=== PATIENT | female | born 1975 | race Caucasian/White ===

== ENCOUNTER 2019-03-01 01:40 | Emergency (ER) | payer MEDICAID ==
[~2019-03-01] VITALS: Ht 167.6 cm; Wt 84.8 kg
[2019-03-01 02:39] LABS: Urine Bacteria FEW /hpf (None Seen); Urine Blood Negative /uL (Negative); Urine Mucus FEW (None Seen); Urine Specific Gravity 1.026 (1.001-1.035); Urine WBC 3 /hpf (0 - 5)
[2019-03-01 03:00] LABS: Basophils # (auto) 0.1 uL; Basophils % (auto) 0.6 % (0.0-2.0); Eosinophils # (auto) 0.1 uL; Eosinophils % (auto) 1.1 % (0.0-7.0); Hematocrit 39.1 % (36.0-46.0); Hemoglobin 13.4 g/dL (12.2-16.2); Lymphocytes # (auto) 0.8 uL; Lymphocytes % (auto) 6.5 % (10.0-50.0); Mean Corpuscular Hemoglobin 30.8 pg (28.0-32.0); Mean Corpuscular Hgb Conc. 34.1 g/dL (32.0-36.0); Mean Corpuscular Volume 90.3 fL (80.0-100.0); Monocytes # (auto) 0.7 uL; Monocytes % (auto) 5.8 % (0.0-12.0); Neutrophils # (auto) 10.8 uL; Platelet Count (auto) 285 10^3/uL (140-450); Red Blood Cells 4.34 10^6/uL (4.0-5.20); Red Cell Distribution Width 13.1 % (11.8-14.3); White Blood Cell 12.6 10^3/uL (4.4-10.8)
[2019-03-01 03:18] LABS: Albumin 3.9 g/dL (3.4-5.0); Calcium 8.8 mg/dL (8.5-10.1); Potassium 4.2 mmol/L (3.5-5.1)
[2019-03-01 03:20] LABS: BUN/Creatinine Ratio 14.5
[2019-03-01 03:23] LABS: Bilirubin, Total 0.4 mg/dL (0.2-1.0); Total Protein 8.4 g/dL (6.4-8.2)
[2019-03-01] MEDS ORDERED: SODIUM CHLORIDE 0.9% 1,000 ML IV ONE (07:49)
[2019-03-01] MEDS ORDERED: SODIUM CHLORIDE 0.9% 500 ML IVB ONE (07:49)
[2019-03-01] MEDS ORDERED: HYDROmorphone HCL 2 MG/ML VL IV ONE (08:00)
[2019-03-01] MEDS ORDERED: PROMETHAZINE HCL 25 MG/ML 1ML IV PRN (08:00)
[2019-03-01] MEDS ORDERED: ACETAMINOPHEN 500 MG TAB PO ONE (12:00)
[2019-03-01 13:12] VITALS: BP 112/63
== END 2019-03-01 15:11 | disposition home or self-care (01) ==
LOC: ER 01:44
DX: R82.71 Bacteriuria (principal); M06.9 Rheumatoid arthritis, unspecified; E11.9 Type 2 diabetes mellitus without complications; Z88.0 Allergy status to penicillin
CPT/HCPCS: 36415; 74176; 80053; 81001; 82150; 83690; 85025

== ENCOUNTER 2019-10-21 16:21 | Emergency (ER) | payer MEDICAID ==
[~2019-10-21] VITALS: Ht 170.2 cm; Wt 72.6 kg
[2019-10-21] MEDS ORDERED: HYDROcodone-ACET 5/325MG TAB PO ONE (19:00)
[2019-10-21 19:36] VITALS: BP 122/68
== END 2019-10-21 19:38 | disposition home or self-care (01) ==
LOC: EDBD 16:21 → ER 16:21
DX: M62.838 Other muscle spasm (principal); R51 Headache; M54.5 Low back pain; M54.2 Cervicalgia; R07.9 Chest pain, unspecified; Z88.0 Allergy status to penicillin; V49.9XXA Car occupant (driver) (passenger) injured in unspecified traffic accident, initial encounter; Y93.89 Activity, other specified; Y92.488 Other paved roadways as the place of occurrence of the external cause; Y99.8 Other external cause status
CPT/HCPCS: 70450; 71046; 72040; 72125; 72131